=== PATIENT | female | born 1965 | race Caucasian/White ===

== ENCOUNTER → 2024-08-09 | Outpatient (CLI) | payer MEDICAID, SELFPAY ==
--- NOTE | 2024-08-09 11:55 | NEURO ---
NCS and/or EMG Patient Report Ordering Doctor: Aris Orellana DATE OF SERVICE: 08/09/24 Tasneem presents with complaints of numbness and tingling in both hands. Electrodiagnostic findings: Median motor nerve demonstrates prolonged latency with normal amplitude bilaterally. There is decreased median motor conduction velocity bilaterally. Ulnar motor response within normal limits bilaterally. Prolonged median sensory latency at the wrist bilaterally. Prolonged median F?wave bilaterally. Needle EMG testing was performed in the upper limbs. All muscles tested showed no evidence of denervation with normal motor unit action potentials. Electrodiagnostic impression: This is an abnormal study in the upper limbs 1. Electrodiagnostic findings suggestive of bilateral median mononeuropathy. This consistent with a moderate bilateral carpal tunnel syndrome Multi Select Codes Neurology Neurology Interp Codes: 41308-77 Musc test done w/n test comp (interp) (2) and 40630-30 Nrv cndj test 9-10 studies (interp)
== END | disposition home or self-care (01) ==
PROVIDERS: PCP Nurse Practitioner Family; Referring Provider Internal Medicine; Visit Provider Internal Medicine
DX: R20.0 Anesthesia of skin (principal)
CPT/HCPCS: 95886; 95911